=== PATIENT | male | born 1985 | race Caucasian/White ===

== ENCOUNTER 2018-07-10 10:09 | Emergency (ER) | payer MEDICAID, SELFPAY ==
[2018-07-10 10:09] VITALS: BP 172/94; PULSE 88; RESP 18; TEMP 36.9; O2SAT 98; BMI 22.4
--- NOTE | 2018-07-10 10:39 | ED.VISSUMM ---
- ER Visit Summary Date of Service: 07/10/18 Chief Complaint: Left upper chest tightness History of Present Illness: The patient is a 33 M who has had intermittent left upper chest tightness for 2 days. He describes as tight in the left upper chest. Nothing makes it better or worse. He states he is unsure if he feels short of breath. He is currently on antibiotics for tooth infection. He denies any leg swelling. He has no other cardiac risk factors. Physical Examination: Vital signs reviewed. HEENT exam unremarkable. Heart is regular rate and rhythm without murmurs. Lungs are clear to auscultation. He does have tenderness to palpation of the left upper chest. Abdomen is soft and nontender. Extremities reveal no edema. Skin exam normal. Neurologic exam normal. Test Results: EKG is sinus rhythm with no ST changes. Chest x-ray unremarkable. Labs are also unremarkable. Emergency Department Course and Treatment: Patient was given aspirin. Labs and imaging are normal. I do not feel this is cardiac in nature. His RODERICK score is 0. He will be discharged to follow-up with his PCP on Friday as previously scheduled Treatment Plan: [] Disposition: Discharge Impression: Chest pain This note was generated with [employer] dictation software. It may contain incorrect words, spelling, and punctuation that were not noted in review of the chart prior to signing ED Disposition - Plan for ED Patient: Chief Complaint: Chest Pain Referrals: José Miguel Headley III, MD [Primary Care Provider] -
[2018-07-10] MEDS: Aspirin 81 MG TAB.CHEW 324 MG PO (10:45)
[2018-07-10 11:02] LABS: Absolute Lymphocyte Count 1.48 X10^3/ul (0.83-4.51); Absolute Neutrophil Count 2.9 X10^3/uL (2.0-7.7); Basophil# 0.05 X10^3/uL; Eosinophil# 0.19 X10^3/uL; Eosinophils% 3.7 % (0-5); Hematocrit 47.2 % (40-54); Lymphocyte # 1.48 X10^3/ul (4.0); Lymphocyte % 29.1 % (19-41); Mean Corpuscular Volume 84.1 fL (80-94); Mean Platelet Vol. 10.5 fl (6.2-12.0); Monocyte# 0.45 X10^3/uL; Monocyte% 8.8 % (0-10); Neutrophil # 2.91 X10^3/uL (2.7-7.7); Neutrophil % 57.2 % (47-70); Platelet Count 266 K/mm3 (150-450); RBC Distribution Width CV 12.4 % (11.6-14.6); RBC Distribution Width SD 38.4 fl (35.1-43.9); Red Blood Count 5.61 M/mm3 (4.6-6.2); White Blood Count 5.1 K/mm3 (4.4-11.0)
[2018-07-10 11:06] LABS: Anion Gap 7 (5-15); BUN 10 mg/dL (7-18); BUN/Creat Ratio 9.2 RATIO (10-20); Calcium,Total 9.3 mg/dL (8.5-10.1); Chloride 105 mmol/L (98-107); Creatinine, Serum 1.09 mg/dL (0.70-1.30); EST Glomerular Filtration Rate 83 mL/min (>60); Est Glom Filt Rate - Afr Amer 101 mL/min (>60); Estimated Creatinine Clearance 84.27 ml/min; Glucose 108 mg/dL (74-106); Mean Corpuscular Hgb 30.3 pg (27.0-32.0); POSITIVE COUNT NO; POSITIVE DIFFERENTIAL NO; POSITIVE MORPHOLOGY NO; Potassium 3.6 mmol/L (3.5-5.1); Sodium Level 140 mmol/L (136-145)
[2018-07-10 11:23] VITALS: BP 137/77; PULSE 75; RESP 17; O2SAT 98
--- NOTE | 2018-07-10 11:23 | ED.DEP ---
ED Disposition - Plan for ED Patient: Disposition: Home or Assisted Living Chief Complaint: Chest Pain Instructions: ED Chest Pain NonCardiac Referrals: José Miguel Headley III, MD [Primary Care Provider] -
== END 2018-07-10 11:29 | disposition home or self-care (01) ==
PROVIDERS: Emergency Provider Emergency Medicine; Family Provider Family Medicine; PCP Family Medicine
DX: R07.89 Other chest pain (principal); R06.00 Dyspnea, unspecified; K04.7 Periapical abscess without sinus; Z79.2 Long term (current) use of antibiotics
CPT/HCPCS: 71045; 80048; 84484; 85025; 93005; 99285; A4216

== ENCOUNTER 2018-08-16 09:13 | Emergency (ER) | payer OTHER, MEDICAID, SELFPAY ==
[2018-08-16 09:14] VITALS: BP 140/81; PULSE 65; RESP 18; TEMP 36.3; O2SAT 99; BMI 22.1
--- NOTE | 2018-08-16 09:24 | EKG12_ITS ---
Test Reason : PALPITATIONS Blood Pressure : / mmHG Vent. Rate : 063 BPM Atrial Rate : 063 BPM P-R Int : 126 ms QRS Dur : 084 ms QT Int : 384 ms P-R-T Axes : 073 081 078 degrees QTc Int : 392 ms Normal sinus rhythm Normal ECG Confirmed by JAMES ISRAEL, GOGO ([id number]), editor book MALCOLM GARRIDO ([id number]) on 08/19/2018 8:58:25 AM Referred By: SHANI Confirmed By:GOGO RAMIREZ MD
--- NOTE | 2018-08-16 09:27 | ED.DCSUM_ITS ---
- ER Visit Summary Date of Service: 08/16/18 Chief Complaint: Palpitations History of Present Illness: The patient is a 33 M no past medical history. No recent surgeries. Patient states that he has had some skipped heartbeats of the last 24 hours. No syncope. He was seen 3-4 weeks ago had a negative cardiac workup at that time including a CBC that was normal, BMP, troponin, chest x-ray and EKG. He has never had any cardiac history. He has no family history of young people with sudden cardiac or dysrhythmias. He denies any leg swelling or pain. No hemoptysis. Physical Examination: Very well-appearing young male. Vital signs are stable afebrile. Pulse ox is 90% on room air no signs of hypoxia. He is in no distress. His father is at bedside. H EENT exam unremarkable. Neck nontender no lymphadenopathy. No thyromegaly. Lungs clear to auscultation bilaterally. Heart regular rate and rhythm no murmur no palpitations normal sinus rhythm rate about 70. Chest wall nontender. Abdomen soft nontender. Normal bowel sounds. Moving all 4 extremities. Neurovascularly intact. Calves nontender without edema or cords. Equal symmetrical radial pulses. Normal emergency medcl emt strength and sensation. Dorsi and plantar flexion intact. Back is nontender. Neurologically is awake and alert with no focal motor deficits. Test Results: Patient had a recent negative workup. EKG today shows normal sinus rhythm rate of 63. Otherwise no acute abnormality. No dysrhythmia. No ischemia. Emergency Department Course and Treatment: Patient's exam is normal. Had recent negative workup. I do not feel he needs any further workup today. He can follow-up with his primary care physician for possible outpatient cardiac monitoring if they feel that is necessary. Treatment Plan: Follow-up with his primary care physician. Disposition: Discharge Impression: Acute palpitations This note was generated with [employer] dictation software. It may contain incorrect words, spelling, and punctuation that were not noted in review of the chart prior to signing ED Disposition - Plan for ED Patient: Disposition: Home or Assisted Living Chief Complaint: Palpitations Instructions: ED Palpitations Referrals: José Miguel Headley III, MD [Primary Care Provider] - As soon as possible Additional Instructions: Follow-up with your primary care physician to discuss possible outpatient cardiac monitoring if necessary.
== END 2018-08-16 11:32 | disposition home or self-care (01) ==
LOC: ED 10:24
PROVIDERS: Emergency Provider Emergency Medicine; Family Provider Family Medicine; PCP Family Medicine
DX: R00.2 Palpitations (principal)
CPT/HCPCS: 93005; 99281

== ENCOUNTER 2021-12-20 15:17 | Outpatient (CLI) | payer MEDICAID, SELFPAY ==
--- NOTE | 2021-12-20 15:22 | RAD_ITS ---
EXAM: XR CHEST, 2 VIEWS : 1985 CLINICAL INDICATION: COUGH/PAIN IN 5-6 RIB TECHNIQUE: Frontal and lateral views of the chest. This report was created using [employer] report generation technology. COMPARISON: 07/10/18. FINDINGS: LUNGS AND PLEURAL SPACES: Unremarkable. No consolidation or edema. No pneumothorax. No effusion. HEART: Unremarkable. Cardiac silhouette not enlarged. MEDIASTINUM: Central airways and mediastinal contour are unremarkable. BONES/JOINTS: Unremarkable. SOFT TISSUES: Unremarkable. RAD/Chest PA and Lateral IMPRESSION: No radiographic evidence of acute cardiopulmonary disease. at 0414 Reported and signed by: Lele Joyce MD Electronically Signed: Lele Joyce MD at 4:13 EST ,
== END 2021-12-20 23:59 | disposition short-term general hospital (02) ==
LOC: MTRAD 15:19
PROVIDERS: PCP Family Medicine; Referring Provider Family Medicine; Visit Provider Family Medicine
DX: R07.89 Other chest pain (principal); R05.9 Cough, unspecified; R07.81 Pleurodynia
CPT/HCPCS: 71046

== ENCOUNTER → 2022-05-08 | Outpatient (CLI) | payer MEDICAID, SELFPAY ==
--- NOTE | 2022-05-08 08:18 | US_ITS ---
STUDY: SUPERFICIAL ULTRASOUND - RIGHT LOWER QUADRANT. REASON FOR EXAM: Male, 37 years old. RLQ PAIN TECHNIQUE: A superficial ultrasound was performed with real-time and static avitia-scale imaging. COMPARISON: None. FINDINGS: Imaging of the right lower quadrant was obtained. The patient has a history of prior inguinal hernia repair with mesh. No evidence of recurrence hernia is seen. No mass lesions present. US/Abdomen Limited IMPRESSION: No acute abnormality is seen. Status post right inguinal hernia repair with mesh. Electronically Signed: Eduard Banda MD at 9:49 EDT ,
== END | disposition home or self-care (01) ==
LOC: US 08:16
PROVIDERS: PCP Family Medicine; Referring Provider Family Medicine; Visit Provider Family Medicine
DX: R10.31 Right lower quadrant pain (principal)
CPT/HCPCS: 76705

== ENCOUNTER → 2022-06-12 | Outpatient (CLI) | payer MEDICAID, SELFPAY ==
--- NOTE | 2022-06-12 13:16 | CT_ITS ---
STUDY: CT PELVIS WITH CONTRAST REASON FOR EXAM: Male, 37 years old. Right inguinal pain RADIATION DOSAGE (If Supplied By Facility): CTDIvol = ( 19.16 ) mGy, DLP = ( 478.38 ) mGycm TECHNIQUE: Transaxial imaging of the pelvis was performed without oral contrast. Isovue 300 100 ml was administered intravenously. Multiplanar coronal and sagittal images were reformatted. Individualized dose optimization techniques were used for this CT. COMPARISON: None. FINDINGS: Normal urinary bladder. Normal visualized small intestine. There are scattered colonic diverticula of the sigmoid colon consistent with chronic diverticulosis. There is no pelvic fluid. There is no pelvic lymphadenopathy or mass lesion. Normal visualized pelvic arteries. Small umbilical hernia containing fat. Normal osseous structures. CT/Pelvis WITH IV Contrast IMPRESSION: Small umbilical hernia containing fat. Scattered sigmoid diverticula. Electronically Signed: Eduard Banda MD at 14:28 EDT ,
== END | disposition home or self-care (01) ==
LOC: CT 13:15
PROVIDERS: PCP Family Medicine; Referring Provider Surgery; Visit Provider Surgery
DX: R10.31 Right lower quadrant pain (principal)
CPT/HCPCS: 72193; Q9967

== ENCOUNTER → 2022-07-04 | Outpatient (CLI) | payer MEDICAID, SELFPAY ==
[2022-07-04 10:40] LABS: Absolute Lymphocyte Count 1.89 X10^3/uL (0.83-4.51); Absolute Neutrophil Count 4.2 X10^3/uL (2.0-7.7); Basophil# 0.08 X10^3/uL; Basophil% 1.1 % (0-1); Eosinophil# 0.27 X10^3/uL; Eosinophils% 3.8 % (0-5); Hematocrit 47.3 % (40-54); Hemoglobin 16.6 g/dL (13.0-16.5); Lymphocyte # 1.89 X10^3/ul (0.83-4.51); Lymphocyte % 26.3 % (19-41); Mean Corp Hgb Conc 35.1 g/dL (32-36); Mean Corpuscular Hgb 31.1 pg (27.0-32.0); Mean Corpuscular Volume 88.6 fL (80-94); Mean Platelet Vol. 10.9 fl (6.2-12.0); Monocyte# 0.69 X10^3/uL; Monocyte% 9.6 % (0-10); NRBC Flagged by Analyzer 0 % (0-5); Neutrophil # 4.23 X10^3/uL (2.7-7.7); Neutrophil % 58.8 % (47-70); Platelet Count 278 K/mm3 (150-450); RBC Distribution Width CV 12.3 % (11.6-14.6); RBC Distribution Width SD 39.8 fl (35.1-43.9); Red Blood Count 5.34 M/mm3 (4.6-6.2); White Blood Count 7.2 K/mm3 (4.4-11.0)
[2022-07-04 11:31] LABS: ALB/GLOB Ratio 1.3 RATIO (0.9-2.4); AST(SGOT) 20 U/L (15-37); Alanine Aminotransfer ALT/SGPT 43 U/L (16-61); Albumin, Serum 4.2 g/dL (3.2-5.0); Alkaline Phosphatase 57 U/L (45-117); Anion Gap 6 (5-15); BUN 11 mg/dL (7-18); BUN/Creat Ratio 10.7 RATIO (10-20); Calcium,Total 8.8 mg/dL (8.5-10.1); Chloride 104 mmol/L (98-107); Creatinine, Serum 1.03 mg/dL (0.70-1.30); EST Glomerular Filtration Rate 87 mL/min (>60); Est Glom Filt Rate - Afr Amer 105 mL/min (>60); Globulin 3.3 g/dL (2.2-4.2); Glucose 77 mg/dL (74-106); Potassium 3.8 mmol/L (3.5-5.1); Protein, Total 7.5 g/dL (6.4-8.2); Sodium Level 139 mmol/L (136-145); Thyroid Stim Hormone (TSH) 0.61 uIU/mL (0.358-3.74)
[2022-07-05 15:08] LABS: Endomysial Antibody IgA Negative (Negative)
[2022-07-05 17:16] LABS: Immunoglobulin A 241 mg/dL (90-386); t-Transglutaminase IgA <2 U/mL (0-3)
== END | disposition home or self-care (01) ==
LOC: LAB 09:02
PROVIDERS: PCP Family Medicine; Visit Provider Family Medicine
DX: R10.32 Left lower quadrant pain (principal)
CPT/HCPCS: 36415; 80053; 82784; 83516; 84443; 85025; 86255

== ENCOUNTER 2025-08-05 12:17 | Emergency (ER) | payer OTHER, SELFPAY ==
[2025-08-05 12:17] VITALS: BP 148/81; PULSE 75; RESP 18; TEMP 37.1; O2SAT 100; BMI 23.3
--- NOTE | 2025-08-05 12:41 | ED.VIS.GI ---
HPI HPI - GI History of Present Illness Chief Complaint: Abd Pain Informant: patient Narrative Narrative: 40-year-old male started having right lower quadrant abdominal pain last night, seems worse today. Constant. Associated with some nausea no vomiting. Does not recall ever having this before. It is down near his right groin does not radiate into his side, back, or his scrotum/testicles. No urinary symptoms, no problems with bowel movements, and no vomiting. No fevers or chills. No history of kidney stones that he knows of. He had a right inguinal herniorrhaphy in the past no other abdominal surgeries and the surgery was remote. [facility] Medical History (Updated 08/05/25 @ 15:[address] Modesto Novak MD) No active medical problems Medical History no medical history no medical history Home Medications ?Medication ?Instructions ?Recorded ?Last Taken ?Type multivitamin (Multiple Vitamins 1 ea PO DAILY 07/10/18 Unknown History tablet) omega 3-dha 60 mg-epa 90 mg-fish 800 mg PO DAILY 07/10/18 Unknown History oil 500 mg capsule, delayed release (Fish Oil) Allergy/AdvReac Type Severity Reaction Status Date / Time No Known Allergies Allergy Verified 08/05/25 12:17 Family History Father Hypertension Thyroid disorder Hypothyroidism Brother Hypertension Mother Hypertension Surgical History S/P hernia repair S/P tonsillectomy Social History household members: family Smoking Status: Never smoker ROS ROS ED Constitutional Constitutional ED: Denies chills or fever(s) Eyes Eyes: Denies change in vision or diplopia ENT ENT ED: Denies rhinorrhea or sore throat Cardiovascular Cardiovascular: Denies chest pain or palpitations Respiratory/Chest Respiratory/Chest: Denies cough or dyspnea Gastrointestinal Gastrointestinal: Reports abdominal pain and nausea; Denies diarrhea or vomiting Genitourinary Genitourinary ED: Denies dysuria or hematuria Musculoskeletal Musculoskeletal: Denies back pain or neck pain Integumentary Denies abscess or rash Neurologic Neurologic: Denies headache(s), paresthesias or weakness Psychiatric Psychiatric: Denies suicidal thoughts EXAM Physical Exam Const Vital Signs: 08/05/25 12:17 08/05/25 14:17 Temperature 98.7 F Temperature Source Oral Pulse Rate 75 78 Respiratory Rate 18 16 Blood Pressure 148/81 H 128/78 H Blood Pressure Mean 103 94 Pulse Ox 100 98 Oxygen Delivery Method Room Air Room Air Positive well nourished and well developed General Appearance ED: well developed and NAD HEENT Reports moist mucous membranes normocephalic and atraumatic Eyes PERRL and EOMs intact bilaterally Neck full ROM and supple Resp normal respiratory effort and clear to auscultation bilaterally Cardio regular rate, regular rhythm and no murmurs GI non-tender and non-distended GI Narrative: Not able to reproduce patient's abdominal pain which is active and present, with palpation. Benign abdomen. Pain seems to be more distal near the inguinal ligament/groin, where he is also nontender and has no palpable lymphadenopathy. Auscultation: normoactive bowel sounds Palpation: soft Narrative: Evaluated while standing. No hernias. No testicular tenderness. Normal external genitalia. Patient indicates junction of the right superior scrotum and groin as location of some of the discomfort which is nontender and without a palpable bag of worms. Back/Spine no CVA tenderness General Back: other FROM Extremity normal to inspection General Extremety ED: Negative for edema, pulses abnormal or tenderness General Extremity: Negative for edema or pulses abnormal Neuro oriented x3, CN's II-XII intact bilaterally and no sensory deficits noted Sensorium / Orientation: awake and alert Motor Exam: strength 5/5 throughout Skin no rashes or lesions noted and no wounds MDM MDM MDM Narrative Medical decision making narrative: Kidney stone and appendicitis are at the top of the differential, but since his abdomen is very benign and I am not able to reproduce any tenderness, my thought is that this is more likely to be kidney stone so ordering blood work and urinalysis and a noncontrasted CT. In the meantime he will also be given analgesics and antinausea medication. The pain that he is having involves acute sharp brief exacerbations of pain near the inguinal ligament of unclear etiology; musculoskeletal/strain is in the differential as well. These medications helped, urinalysis and labs are all normal, I reviewed the CT images and the result which I agree with, it is unremarkable except for a single incidental shadowing gallstone which I discussed with the patient, and he has had no symptoms of biliary colic. The appendix was seen on the CT and unremarkable. His vital signs are normal. I considered diagnoses such as varicocele or hydrocele, however he is not having any testicular pain or tenderness and I do not think he needs ultrasound emergently, I do not think this is torsion. Unclear if this could had anything to do with his prior herniorrhaphy which is in his area, but since there was no inflammatory changes seen on the CT my suspicion/assumption is that it is not related. At this time I reassured him and advised to follow-up after the weekend if he still has persistent symptoms. I am going to set him up for an outpatient scrotal ultrasound if the symptoms do not resolve on their own before he follows up with his doctor, I do not think he needs that emergently. Lab Data Attestation: I reviewed the patient's lab results. Labs: Laboratory Results - last 24 hr 08/05/25 12:52 WBC 7.3 RBC 5.20 Hgb 16.3 Hct 44.4 MCV 85.4 MCH 31.3 MCHC 36.7 H RDW Std Deviation 37.6 RDW Coeff of Clay 12.2 Plt Count 298 MPV 10.5 Immature Gran % (Auto) 0.300 Neut % (Auto) 62.0 Lymph % (Auto) 27.1 Pacific % (Auto) 7.5 Eos % (Auto) 2.0 Baso % (Auto) 1.1 H Absolute Neuts (auto) 4.5 Absolute Lymphs (auto) 1.99 Nucleated RBC % 0 Sodium 138 Potassium 3.8 Chloride 101 Carbon Dioxide 23.5 Anion Gap 14 BUN 7 Creatinine 1.01 Estim Creat Clear Calc 88.61 Est GFR (MDRD) Non-Af 97 BUN/Creatinine Ratio 7.4 L Glucose 107 H Calcium 9.3 Urine Color Yellow Urine Clarity Clear Urine pH 7.0 Ur Specific [place] 1.010 Urine Protein 15 H Urine Glucose (UA) Normal Urine Ketones Negative Urine Occult Blood Negative Urine Nitrite Negative Urine Bilirubin Negative Urine Urobilinogen Normal Ur Leukocyte Esterase Negative Urine RBC 0 SEEN Urine WBC 0 SEEN Ur Squamous Epith Cells 0 SEEN Urine Bacteria 0 SEEN Urine Mucus 0 SEEN Radiography Diagnostic Testing: Clinical Impression(s) from Imaging Studies Abdomen/Pelvis CT 08/05/25 13:10 IMPRESSION: Tiny gallstone seen along the dependent portion of the gallbladder lumen. Reading Location: [facility] Discharge Plan Triage Chief Complaint: Abd Pain ED Provider: Modesto Novak Dx/Rx/DC Orders Clinical Impression: Right groin pain, Cholelithiasis without cholecystitis Instructions: ED Groin Strain (Adult) Prescriptions: No Action multivitamin [Multiple Vitamins] 1 EACH tablet 1 ea PO DAILY Fish Oil 500 MG capsule,delayed release(DR/EC) 800 mg PO DAILY Other Ambulatory Orders: Testicular with Arterial Flow (Routine) Timeframe: 5 Days Facility: [facility] - Location: [facility] Ordered By: Dr. Modesto Novak Primary Care Provider: Jeannie Mcfarland Referrals: Jeannie Mcfarland MD [Primary Care Provider] - Activity Restrictions/Additional Instructions: Cause of your pain may or may not be a muscle strain with muscle spasms, which is 1 possibility, but if the pain persists and does not seem to be improving after the weekend, schedule for the scrotal ultrasound at the hospital and follow-up with your doctor after it is obtained at some point. Print Language: Mozambican Disposition Disposition: Home, Self Care
[2025-08-05] MEDS: Ketorolac 30 MG/ML Syringe IV (13:00)
[2025-08-05 13:02] LABS: Mucous, Urine 0 SEEN /hpf (<or=2+); Red Blood Cells-Urine 0 SEEN /hpf (0-5); Squamous Epithelial Cells - UA 0 SEEN /hpf (0-5)
[2025-08-05 13:07] LABS: Hematocrit 44.4 % (40-54); Hemoglobin 16.3 g/dL (13.0-16.5); Immature Granulocytes Count 0.020 X10^3/uL (0.0-0.0); Mean Corp Hgb Conc 36.7 g/dL (32-36); Mean Corpuscular Volume 85.4 fL (80-94); Mean Platelet Vol. 10.5 fl (6.2-12.0); NRBC Flagged by Analyzer 0 % (0-5); Platelet Count 298 K/mm3 (150-450); RBC Distribution Width CV 12.2 % (11.6-14.6); RBC Distribution Width SD 37.6 fl (35.1-43.9); Red Blood Count 5.20 M/mm3 (4.6-6.2); White Blood Count 7.3 K/mm3 (4.4-11.0)
--- NOTE | 2025-08-05 13:10 | CT_ITS ---
PROCEDURE: ABDOMEN/PELVIS WITHOUT CONT 08/05/2025 REASON FOR EXAM: PAIN RLQ Nausea. TECHNIQUE: Procedure Code: [id number] Modality: CT Procedure: ABDOMEN/PELVIS WITHOUT CONT Noncontrast technique limits evaluation of the abdominal and pelvic viscera. Coronal and Sagittal reconstruction series were provided. One or more dose reduction techniques were used (e.g., Automated exposure control, adjustment of the mA and/or kV according to patient size, use of iterative reconstruction technique). RADIATION DOSE SUMMARY: CTDlvol: 6.13 mGy DLP: 335.36 mGycm COMPARISON: None FINDINGS: Lung bases: Unremarkable Liver: Normal size. No obvious mass. Gallbladder: Tiny gallstone along the dependent portion of the gallbladder lumen. Spleen: Normal size. Pancreas: Normal size. No surrounding inflammation. Adrenals: Unremarkable Kidneys: No urolithiasis. No hydronephrosis. Bladder: The urinary bladder is almost empty. Bowel: Unremarkable Appendix: Unremarkable Lymph nodes: Unremarkable. Vasculature: The abdominal aorta and IVC contours are normal. Noncontrast technique limits evaluation. Peritoneum / Retroperitoneum: Unremarkable Bones: Straightening of the normal lumbar lordosis. Schmorl's node in the superior endplate of the L4 vertebrae. CT/Abdomen/Pelvis without Cont IMPRESSION: Tiny gallstone seen along the dependent portion of the gallbladder lumen. Reading Location: [id number]
[2025-08-05 13:17] LABS: Color, Urine Yellow (Yellow); Glucose, Dipstick Normal (Normal); Ketone-Dipstick Negative (Negative); Leukocyte Esterase-Dipstick Negative /ul (Negative); Nitrite-Dipstick Negative (Negative); Occult Blood-Urine Negative /ul (Negative); Protein-Dipstick 15 mg/dl (Negative); Specific Gravity, Urine 1.010 (1.002-1.030); Urine Bilirubin Dipstick Negative (Negative)
[2025-08-05 13:53] LABS: Anion Gap 14 (5-15); BUN 7 mg/dL (4-19); BUN/Creat Ratio 7.4 RATIO (10-20); Calcium,Total 9.3 mg/dL (7.6-11.0); Carbon Dioxide 23.5 mmol/L (21.0-32.0); Chloride 101 mmol/L (98-108); Estimated Creatinine Clearance 88.61 ml/min (50-250); Glucose 107 mg/dL (70-99); Potassium 3.8 mmol/L (3.3-5.1)
[2025-08-05 14:17] VITALS: BP 128/78; PULSE 78; RESP 16; O2SAT 98
[2025-08-05 15:56] VITALS: BP 138/74; PULSE 74; RESP 16; TEMP 36.8; O2SAT 99
== END 2025-08-05 16:02 | disposition home or self-care (01) ==
PROVIDERS: Emergency Provider Emergency Medicine; PCP Family Medicine; Visit Provider Emergency Medicine
DX: K80.10 Calculus of gallbladder with chronic cholecystitis without obstruction (principal); R10.31 Right lower quadrant pain
CPT/HCPCS: 74176; 80048; 81001; 85025; 96374; 96375; 99283; A4216; J2405